=== PATIENT | female | born 1960 | race Caucasian/White ===

== ENCOUNTER 2016-08-03 21:22 | Observation (INO) | payer BC ==
--- NOTE | ~2016-08-03 | HP ---
History And Physical [id number] [place]. [address] NAME: GWENDOLYN MACHADO : 58 STATUS : ADM Robyn PAT#: [id number] AGE: 55 ADM/REG DATE : 08/03/16 MR#: [id number] REPORT SERV DATE: 08/04/16 DICTATED BY: ROSSY RAUSCH DATE: 08/04/16 REPORT STATUS : Draft TRANSCRIBED BY: GARCÍA DATE: 08/04/16 DATE OF ADMISSION: 08/03/2016 PRIMARY CARE PROVIDER: [facility] Hugo Aguilar [place], [place] CHIEF COMPLAINT: Atypical chest pain. HISTORY OF PRESENT ILLNESS: A pleasant 55-year-old white female with no known history of CAD, reports two weeks of atypical chest pain. She describes her chest pain as a "stabbing and sharp" pain that at times radiates towards her left shoulder. There is seemingly no pattern with either exertion or stress to these events. She denies shortness of breath, nausea, dizziness, or belching. She does report some diaphoresis with these episodes. At its most intense, she rates the chest pain a 5/10. At time of interview in the [facility], she is pain free. Episodes last approximately 30 minutes in duration, and they have been improved with Nitrol paste, aspirin, and morphine. 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 She states she has had some episodes at work, but not routinely. The patient denies any personal history of myocardial infarction, stroke, DVT, or pulmonary embolus. The patient denies any recent fever or chills, no palpitations, no syncopal episodes. Denies PND or orthopnea. PAST MEDICAL HISTORY: 1. A borderline diabetic. 2. Denies hypertension and dyslipidemia. 3. Unknown cholesterol status. 4. BMI greater than 40. PAST SURGICAL HISTORY: 1. Cholecystectomy. 2. Appendectomy. 3. . 4. Left ankle repair. 5. Tonsillectomy. SOCIAL HISTORY: She is with two children. 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 She does not have an exercise routine. Denies tobacco, alcohol, or illicits. FAMILY HISTORY: The patient is adopted. REVIEW OF SYSTEMS: A 14-point review of systems performed, significant for HPI. The patient reports she snores at night with no formal sleep study. Otherwise, complete review of systems obtained and negative. History And Physical [address] [address] NAME: GWENDOLYN MACHADO : 58 STATUS : ADM Robyn PAT#: [id number] AGE: 55 ADM/REG DATE : 08/03/16 MR#: [id number] REPORT SERV DATE: 08/04/16 DICTATED BY: ROSSY RAUSCH DATE: 08/04/16 REPORT STATUS : Draft TRANSCRIBED BY: GARCÍA DATE: 08/04/16 ALLERGIES: NO KNOWN DRUG ALLERGIES. HOME MEDICINES: Vitamin C daily and Temovate cream 3 times daily to feet. PHYSICAL EXAMINATION: VITAL SIGNS: Blood pressure 131/61, pulse 67, respirations 15, temperature 97.8, O2 saturation 97% on room air, height 5 feet 0 inches, weight 217 pounds, and BMI 42.7. GENERAL: Cooperative, in no apparent distress. HEENT: Pupils 2 mm, sclera nonicteric. Nares patent. Moist mucous membranes. No xanthelasma. NECK: Trachea midline, no thyromegaly. No JVD. No bruits. LYMPH: No cervical lymphadenopathy. No supraclavicular lymphadenopathy. RESPIRATORY: Unlabored respirations. Breath sounds clear bilaterally to posterior auscultation. No wheezes or rhonchi. CARDIOVASCULAR: Regular rate. No murmur, rub or gallop appreciated. Trace ankle edema. Pulses 2+ bilaterally. ABDOMEN: Soft, nontender, nondistended, normal bowel sounds auscultated throughout. No organomegaly. SKIN: Warm, dry extremities. No pallor, or cyanosis. PSYCHIATRIC: Appropriate affect. Alert, oriented x3. LABORATORY DATA: Troponin less than 0.02 x3. Potassium 3.9, BUN 18, creatinine 1.03, glucose 126, and magnesium 2.3. WBC 10.3, hemoglobin 14.9, hematocrit 44.2, and platelet count 201,000. EKG: Sinus rhythm. ASSESSMENT AND PLAN: 1. Atypical chest pain with a reproducible component. The patient has been observed in the CP[facility] overnight to rule out myocardial infarction. Three sets of cardiac markers negative. EKG appears stable. The patient has been held n.p.o., would like to proceed with cardiac cath today. The patient will be discharged home if negative study. If anything suggestive of ischemia, cardiology referral will be initiated. Otherwise, the patient will be asked to follow up at [facility] in [place] in one to two weeks. 2. Unknown cholesterol. We will check her fasting lipid panel. 3. BMI greater than 40. Diet and exercise choices discussed. ADIS/GARCÍA OLIVIER Richter, [employer]-BC / [id number] CC: OLIVIER Richter, [employer]RICIAN-BC
[2016-08-03 21:43] LABS: BASOPHILS 0.2 %; BASOPHILS ABSOLUTE 0.02 10/3/uL (0.0-0.16); EOSINOPHILS 1.6 %; EOSINOPHILS ABSOLUTE 0.16 10/3/uL (0.0-0.53); ER CBC TAT 0 Hrs 05 Mins; HEMATOCRIT 44.2 % (36.0-48.0); HEMOGLOBIN 14.9 g/dL (12.0-16.0); IMMATURE GRANULOCYTES 0.1 %; IMMATURE GRANULOCYTES ABSOLUTE 0.01 10/3/uL (0.0-0.11); LYMPHOCYTES 20.1 %; LYMPHOCYTES ABSOLUTE 2.06 10/3/uL (0.67-4.30); MEAN CORPUS HGB CONC 33.7 g/dL (32.0-36.0); MEAN CORPUSCULAR VOLUME 86.2 fL (80-100); MEAN PLATELET VOLUME 10.5 fL (9.2-13.0); MONOCYTES 5.7 %; MONOCYTES ABSOLUTE 0.58 10/3/uL (0.21-1.20); NEUTROPHILS 72.3 %; NEUTROPHILS ABSOLUTE 7.42 10/3/uL (2.02-8.40); PLATELET COUNT 201 10/3/uL (150-400); RBC DISTRIBUTION WIDTH 13.7 % (12.0-16.0); RED CELL COUNT 5.13 10/6/uL (4.0-5.6); WHITE BLOOD CELLS 10.3 10/3/uL (4.5-10.5)
[2016-08-03 21:47] LABS: MANUAL DIFF NO %
[2016-08-03 21:53] LABS: PARTIAL THROMBO TIME 26.6 SEC (22.5-37.2); PROTIME (NOT ORD) 12.6 SEC (12.0-14.5)
[2016-08-03 22:00] LABS: BUN (BLOOD UREA NITROGEN) 18 MG/DL (6-23); CALCIUM, SERUM 9.4 MG/DL (8.5-10.4); CHEST PAIN PROFILE TAT 0 Hrs 22 Mins; CHLORIDE, SERUM 102 MMOL/L (96-112); CO2 (CARBON DIOXIDE) 30 MMOL/L (24-34); CREATININE 1.03 MG/DL (0.55-1.02); GFR AFRICAN AMERICAN 70 ML/MIN (>=60); GFR NON AFRICAN AMERICAN 61 ML/MIN (>=60); GLUCOSE, SERUM 126 MG/DL (60-99); POTASSIUM, SERUM 3.9 MMOL/L (3.5-5.3); SODIUM, SERUM 140 MMOL/L (135-148); TROPONIN I <0.02 NG/ML (<0.05)
[2016-08-04] MEDS ORDERED: TEMOVATE CREAM30 GM TOP (01:19)
[2016-08-04] MEDS ORDERED: VITC500 PO (01:19)
[2016-08-04 06:34] LABS: TROPONIN I <0.02 NG/ML (<0.05)
[2016-08-04 08:57] LABS: CHOL/HDL RATIO(NOT ORDER) 4.4 (0-5); CHOLESTEROL 170 MG/DL (< 200); HDL CHOLESTEROL 39 MG/DL (> 49); LDL CHOLESTEROL 98 MG/DL (< 130); NON-HDL CHOLESTEROL 131 MG/DL (< 160); TRIGLYCERIDE 165 MG/DL (< 150)
== END 2016-08-04 11:07 | disposition home or self-care (01) ==
LOC: ER 21:22 → CDU1 21:23 → CDU2 08-04 00:55
PROVIDERS: Clinical Nurse Specialist; Specialist
DX: R07.89 Other chest pain (principal); Z68.41 Body mass index [BMI] 40.0-44.9, adult; Z90.49 Acquired absence of other specified parts of digestive tract; Z98.890 Other specified postprocedural states; Z79.899 Other long term (current) drug therapy
CPT/HCPCS: 71020; 78492; 80048; 80061; 83735; 84484; 85025; 85610; 85730; 93005; 93017; 96374; 99285; A9270-GY; A9555; G0378; J2785